=== PATIENT | female | born 1960 | race Caucasian/White ===

== ENCOUNTER 2019-06-06 07:44 | Outpatient (CLI) | payer OTHER ==
[~2019-06-06 07:44] MED LIST: ATENOLOL100 MG PO; DILT-CD180 MG PO
== END 2019-06-06 14:38 | disposition home or self-care (01) ==
LOC: TOM 07:44
DX: K56.600 Partial intestinal obstruction, unspecified as to cause (principal); Z12.11 Encounter for screening for malignant neoplasm of colon

== ENCOUNTER 2021-05-19 07:07 | Day surgery (SDC) | payer OTHER ==
[~2021-05-19 07:07] MED LIST changes: +CARVEDILOL12.5 MG; +CRESTOR10 MG PO; +HYDROCHLOROTH12.5 MG PO; +NORVASC5 MG PO
== END 2021-05-19 20:25 | disposition home or self-care (01) ==
LOC: CIR.AMB 07:07
PROVIDERS: ATTEND Obstetrics & Gynecology
DX: N95.0 Postmenopausal bleeding (principal); Z20.822 Contact with and (suspected) exposure to COVID-19